=== PATIENT | female | born 1980 | race Caucasian/White ===

== ENCOUNTER 2025-07-12 09:31 | Emergency (ER) | payer SELFPAY ==
--- OUTSIDE RECORDS SUMMARY | 2025-05-20 04:15 | XMS_ITS ---
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 Encounter Location Date Provider Diagnosis Main [address] [place] [id number] 05/20/2025 Fior Oates Plan Of Treatment No Information Progress Notes * Sue LONDON MDOB:1980 (44 yo F)Acc No.[id number]:05/20/2025 Progress Notes Patient: Kevin delmy Sue Manning :?Fior OatesDOB:1980???Age:44 Y???Sex: FemaleDate:05/20/2025Phone:[phone]:[address], [facility] Subjective: * Chief Complaints: * N P Wellness Billing Information: * Procedure Codes: * Electronic signature of KAYKAY Flores on 07/12/2025 at 10:23 AM ESTSign off status: Pending * Provider: Jane Oates Date: Generated for Printing/Faxing/eTransmitting on:?07/12/2025 10:23 AM EST
[2025-07-12 09:38] VITALS: BP 138/86; PULSE 81; TEMP 36.7; O2SAT 99; BMI 39.0
--- OUTSIDE RECORDS SUMMARY | 2025-07-12 10:23 | XMS_ITS | Patient Health Record ---
Author Organization [facility] Address [address] [place] [address] Care Team Providers Care Public Health Professor Name Role Phone Dr. Antonio Stewart Primary Care Provider Reason For Referral No Information Medications Medication SIG (Take, Route, Frequency, Duration) Notes Start Date End Date Status Ibuprofen 800 MG Tablet 1 tablet with fo od or milk as needed Orally Three times a day 02/20/2022ctive Plan Of Treatment No Information Insurance Providers Payer Name Payer Address Payer Phone Subscriber Number Group Number Insured Name Patient Relationship to Insured Coverage Start Date Coverage End Date z[employer] UR[employer]-te rmed [address] [place] [address] [id number] ROSEMARYCHRISTELLE Self - patient is the insured zMEDICAID [facility] after [employer]-termed [address] [place] [address] [id number], HEATHERlf - patient is the insured 2022zDENTAL [employer]-termed [address] [place] [id number], RAVINDERruizf - patient is the [id number] [facility] after [employer]termed [address] [place] [id number], HEATHERlf - patient is the [id number] 2022
--- OUTSIDE RECORDS SUMMARY | 2025-07-12 10:23 | XMS_ITS | Clinical Summary ---
Author Organization [facility] Address [address], [address] [place] [address] Care Team Providers Care Steward/Stewardess Third Name Role Phone Unavailable Primary Care Provider Unavailabl e Allergies Active AllergyReactionsCriticalityNoted DateCommentsCyclobenzaprineRashMedium 11/13/2019 Social History Tobacco UseTypesPacks/DayYears UsedDateSmoking Tobacco: Every DayCigarettes Smokeless Tobacco: NeverAlcohol UseStandard Drinks/WeekCommentsNot Currently0 (1 standard drink = 0.6 oz pure alcohol)CommentsUnknownSex and Gender InformationValueDate RecordedSex Assigned at BirthNot on fileLegal SexFemale 09/02/2012 9:13 PM ESTGender IdentityNot on fileSexual OrientationNot on file Last Filed Vital Signs Vital SignReadingTime TakenCommentsBlood Hftqpvsa596/7504 9:32 PM EDT Avnrv6147/24/2020 9:32 PM HBKBvttscnyvlh88.9 ??C (98.4 ??F)11/13/2019 9:32 PM EDTRespiratory Zame773211/13/2019 9:32 PM EDTOxygen Bnsmfjiuub30%11/13/2019 9:32 PM EDTInhaled Oxygen Concentration--Zvacca06.2 kg (157 lb)11/13/2019 9:32 PM EDT Vqowvu166 cm (5' 3 )11/13/2019 9:32 PM EDTBody Mass Index27.8104 9:32 PM EDT Plan of Treatment Not on file Insurance
--- OUTSIDE RECORDS SUMMARY | 2025-07-12 10:24 | XMS_ITS | Patient Health Record ---
Author Organization [facility] vices Address [address] [facility] [place] [id number] Care Team Providers Care Nail Mill Worker Name Role Phone Fior Oates Unavailable [phone] Reason For Referral No Information Social History Social History Additional DetailsCategorySocial InfoOptionsDetailsMigrated Social History Migrated Social History Alcohol Use, COMMENTS: very rare, ProblemStatus: Active, , Barriers to Learning, AttributeTitle: None, ProblemStatus: Active, , Caffeine Use, COMMENTS: 1 daily, ProblemStatus: Active, , Cultural or moravian beliefs that would affect your care here?, AttributeTitle: No, ProblemStatus:Active, , Culture/Language Barrier, AttributeTitle: No, ProblemStatus: Active, , Current Control Method, AttributeTitle: None, ProblemStatus: Active, , Current tobacco use, AttributeTitle: Current every day smoker, ProblemStatus: Active, , Current tobacco use, AttributeTitle: Has been smoking for 9 years, ProblemStatus: Active, , Current tobacco use, AttributeTitle: Has tried unsuccessfully in the past to quit, ProblemStatus: Active, , Current tobacco use, AttributeTitle: Smokes < 1 pack of cigarettes per day, ProblemStatus: Active, , Current tobacco use, AttributeTitle: Would like to quit, ProblemStatus: Active, , Current Work/Study Status, AttributeTitle: Full-time, COMMENTS: seasonal, ProblemStatus: Active, , Drug Use, AttributeTitle: Recently quit drug use, COMMENTS: 5 years ago, ProblemStatus: Active, , Drug Use, AttributeTitle: Uses IV drugs, COMMENTS: 5 years ago, ProblemStatus: Active, , Drug Use, AttributeTitle: Uses marijuana, COMMENTS: 5 years ago, ProblemStatus: Active, , Education Level, AttributeTitle: Grade 7-12, ProblemStatus: Active, , How often do you need to have someone help you read instructions?, AttributeTitle: Never, ProblemStatus: Active, , Learning preference , AttributeTitle: Doing or Practicing, ProblemStatus: Active, , Living Situation, AttributeTitle: Lives with parents, COMMENTS: and 2 children--bi-weekly, ProblemStatus: Active, , Most Recent Primary Occupation, AttributeTitle: Construction trade, ProblemStatus: Active, , Number of partners - current, COMMENTS: 0, ProblemStatus: Active, , Number of partners - lifetime, COMMENTS: 16, ProblemStatus: Active, , Past Control Method, AttributeTitle: Intrauterine device, ProblemStatus: Active, , Past Control Method, AttributeTitle: Oral contraceptives, ProblemStatus: Active, , Patient feels safe in relationships, ProblemStatus: Active, , Sexual activity, AttributeTitle: Not currently sexually active, COMMENTS: about a month as of 10/13/15, ProblemStatus: Active Problems Problem Type SNOMED Code ICD Code Onset Dates Problem Status W/U Status Risk Notes Problem Tobacco dependence (30042461) Tobacco dep endence (F17.200) ActiveconfirmedProblemAbnormal uterine bleeding (25775485125096)Abnormal uterine bleeding (AUB) (N93.9)ActiveconfirmedComment:Patient counseled. Medical management discussed. Patient is currently a tobacco smoker. NSAID advised in addition to DMPA which was given today. Smoking cessation counseling done. Nicotine patches ordered.,ProblemGynecological examination normal (170868319817610)Encounter for routine gynecological examination (Z01.419)Active confirmedComment:Routine gynecology exam completed., Encounters Encounter Location Date Provider Diagnosis Main [address] [place] [id number] 07/01/2025 [facility] Plan Of Treatment No Information Insurance Providers Payer Name Payer Address Payer Phone Subscriber Number Group Number Insured Name Patient Relationship to Insured Coverage Start Date Coverage End Date Shelley [employer] [address] [place] [address] [id number] Driss London - patient is the [id number] 2022Medicaid [facility] after [address] [place] [id number], HeatherSelf - patient is the insured 2022 Medical (General) History Surgical History Surgery Date(Month/Year) Abcess removed, COMMENTS: 21 removed, Pr oblemStatus: Active, Tonsillectomy and adenoidectomy, ProblemStatus: Active, Section - 2, ProblemStatus: Active,Tubes in Ear, COMMENTS: 4-5 times, ProblemStatus: Active, LEEP, ProblemStatus: Active,Shoulder Surgery, ProblemStatus: Active, : Left,Skin Graft, COMMENTS: x7, ProblemStatus: Active,
[2025-07-12 10:44] LABS: HCG Qualitative Urine* NEGATIVE (NEGATIVE)
[2025-07-12 10:53] LABS: Glucose Urine UA NEGATIVE (NEGATIVE)
[2025-07-12 11:11] LABS: Cast Seen? NONE SEEN #/LPF (NONE SEEN); Crystals Seen? None Seen #/HPF (None Seen)
[2025-07-12 11:12] LABS: Urine Culture Indicated YES-FRMC
--- NOTE | 2025-07-12 11:23 | ED.GENADUL1 ---
HPI HPI - General Adult General Chief complaint: Urogenital-Female Stated complaint: URINARY ISSUES Time Seen by Provider: 07/12/25 09:36 Source: patient Mode of arrival: walk-in History of Present Illness HPI narrative: 44-year-old female presents for vaginal discharge. She has had it for about a week. She has had sex 1 time in the past year she states and there was no penis and vagina sex. She states he used his fingers. Subsequently she developed this discharge which is greenish in color. She took 1 dose of Monistat but it did not help. No fever or vomiting or complaints of abdominal pain. Related Data Previous Rx's ?Medication ?Instructions ?Recorded metronidazole 250 mg tablet 250 mg PO TID #30 tabs 07/12/25 Allergies Allergy/AdvReac Type Severity Reaction Status Date / Time cyclobenzaprine (From Allergy itching Verified 07/12/25 09:38 Flexeril) Review of Systems ROS Narrative A ten point review of systems is negative except as noted above. PFSH PFSH Social History Little interest or pleasure in doing things: not at all Feeling down, depressed, or hopeless: not at all Exam Narrative Exam Narrative: Nurses note and vital signs reviewed General:The patient appears well and in no apparent distress.Patient is resting comfortably on cart. Skin:Warm, dry, no pallor noted.There is no rash noted. Head:Normocephalic, atraumatic Eye: Normal conjunctiva, no drainage Ears, Nose, Mouth, and Throat: oral mucosa is moist. Nares patent. Cardiovascular:Regular Rate and Rhythm Respiratory:Patient is in no distress, no accessory muscle use, lungs are clear to auscultation, no wheezing, rales or rhonchi Back:non-tender GI: Soft and nontender : No external genitalia skin lesions. She has copious green thin discharge present. Musculoskeletal: The patient has no evidence of calf tenderness, no pitting edema, symmetrical pulses noted bilaterally Neurological:A&O x4, normal speech Psychiatric:Cooperative Constitutional Vital Signs, click to edit/add: Last Vital Signs Temp 98.0 F 07/12/25 09:38 Pulse 81 07/12/25 09:38 Resp 16 07/12/25 09:38 BP 138/86 07/12/25 09:38 Pulse Ox 99 07/12/25 09:38 O2 Del Method Room Air 07/12/25 09:38 Course Vital Signs Vital signs: Vital Signs Temperature 98.0 F 07/12/25 09:38 Pulse Rate 81 07/12/25 09:38 Respiratory Rate 16 07/12/25 09:38 Blood Pressure 138/86 07/12/25 09:38 Pulse Oximetry 99 07/12/25 09:38 Oxygen Delivery Method Room Air 07/12/25 09:38 Temperature 98.0 F 07/12/25 09:38 Pulse Rate 81 07/12/25 09:38 Respiratory Rate 16 07/12/25 09:38 Blood Pressure 138/86 07/12/25 09:38 Pulse Oximetry 99 07/12/25 09:38 Oxygen Delivery Method Room Air 07/12/25 09:38 Medical Decision Making MDM Narrative Medical decision making narrative: Testing is positive for trichomonas. Gonorrhea and Chlamydia test are pending and if positive she would need to be contacted. Treatment diagnosis and follow-up were discussed with the patient. Differential Diagnosis Differential Diagnosis: Trichomonas, BV, gonorrhea, chlamydia Lab Data Lab results reviewed: Yes I reviewed the patient's lab results Labs: Lab Results 07/12/25 Range/Units 09:45 Urine Color Lt. yellow (YELLOW) Urine Clarity Clear (CLEAR) Urine pH 5.5 (5.0-9.0) Ur Specific [place] >=1.030 A (1.005-1.025) Urine Protein Negative (NEG/TRACE) mg/dL Urine Glucose (UA) Negative (NEGATIVE) mg/dL Urine Ketones Negative (NEGATIVE) mg/dL Urine Occult Blood Negative (NEGATIVE) Urine Nitrite Negative (NEGATIVE) Urine Bilirubin Negative (NEGATIVE) Urine Urobilinogen 0.2 (0.2-1.0) EU/dL Ur Leukocyte Esterase Large A (NEGATIVE) Urine RBC 5-10 A (0-2) #/HPF Urine WBC 10-20 A (NONE SEEN) #/HPF Ur Squamous Epith Cells Moderate A (NONE/RARE) #/LPF Urine Crystals None seen (None Seen) #/HPF Urine Bacteria Moderate A (NONE SEEN) #/HPF Urine Casts None seen (NONE SEEN) #/LPF Urine Mucus None seen (NONE SEEN) Urine Trichomonas Seen A (NONE SEEN) Ur Culture Indicated? Yes-[facility] [place] Urine HCG, Qual Negative (NEGATIVE) Discharge Plan Discharge Chief Complaint: Urogenital-Female Clinical Impression: Trichomoniasis Patient Disposition: Home, Self-Care Time of Disposition Decision: 11:22 Condition: Good Mode of Transportation: Private Vehicle Prescriptions / Home Meds: New metronidazole 250 mg tablet 250 mg PO TID Qty: 30 0RF Print Language: Turkish Instructions: Trichomoniasis (ED) Referrals: Physician,Non-Staff, MD [Primary Care Provider] - 1 week
[2025-07-13 20:08] LABS: Neisseria gonorrhoeae, NAA Negative (Negative)
== END 2025-07-12 11:46 | disposition home or self-care (01) ==
PROVIDERS: Emergency Provider Emergency Medicine
DX: A59.01 Trichomonal vulvovaginitis (principal)
CPT/HCPCS: 81001; 84703; 87086; 87210; 87491; 87591; 99283